=== PATIENT | female | born 2000 | race Caucasian/White ===

== ENCOUNTER 2022-05-23 21:16 | Emergency (ER) | payer OTHER, SELFPAY ==
[2022-05-23 22:20] LABS: ALT (SGPT) 9 U/L (8-55); AST (SGOT) 9 U/L (5-34); Albumin 3.8 g/dL (3.5-5.0); Alkaline Phosphatase 39 U/L (40-100); Anion Gap 10 mmol/L (10-20); BUN (Urea Nitrogen) 5 mg/dL (7.0-18.7); Bilirubin, Total 0.4 mg/dL (0.2-1.2); Calc. Creatinine Clearance 0 mL/min (70-130); Calcium 8.8 mg/dL (7.8-10.44); Carbon Dioxide 25 mmol/L (22-29); Chloride 108 mmol/L (98-107); Estimated GFR 119; Globulin 2.2 g/dL (2.4-3.5); Glucose 91 mg/dL (70-105); Potassium 3.3 mmol/L (3.5-5.1); Sodium 140 mmol/L (136-145)
[2022-05-23] MEDS ORDERED: Ondansetron PF 4 MG/2 ML Vial ONE (22:21)
[2022-05-23 22:25] LABS: Hemoglobin 11.1 g/dL (12.0-15.5); Mean Corpuscular Hemoglobin 29.8 pg (27.0-33.0); Mean Corpuscular Volume 87.4 fl (81.6-98.3); Mean Platelet Volume 10.4 fl (7.4-10.4); Platelet Count 204 10x3/uL (150-450); RBC Distribution Width 12.9 % (11.5-14.5); Red Blood Cell (RBC) Count 3.73 10x6/uL (3.90-5.03); White Blood Cell (WBC) Count 9.5 10x3/uL (3.5-10.5)
[2022-05-23 22:33] LABS: MDiff Complete? YES
[2022-05-23 22:57] LABS: Lymphocytes 51 % (28-48); Monocytes 6 % (0-4); Neutrophil 42 % (31-61)
[2022-05-23 22:58] LABS: Platelet Morphology Comment Appears Adequate; RBC Morphology Normal
== END 2022-05-23 23:13 | disposition home or self-care (01) ==
LOC: CSHERS 21:16
DX: E87.6 Hypokalemia (principal); R53.83 Other fatigue; R53.1 Weakness; R11.0 Nausea
CPT/HCPCS: 80053; 85025; 93005; 96374; J2405